=== PATIENT | female | born 1985 | race Caucasian/White ===

== ENCOUNTER 2017-03-04 11:24 | Emergency (ER) | payer OTHER ==
[~2017-03-04] VITALS: Ht 157.5 cm; Wt 56.8 kg
[2017-03-04] MEDS ORDERED: METHOCARBAMOL 500 MG TABLET PO ONE (12:15)
[2017-03-04] MEDS ORDERED: ACETAMINOPHEN 325 MG TABLET PO ONE (12:15)
[2017-03-04] MEDS ORDERED: GuaiFENesin/D-METHORPHAN [SUGAR-FREE] 200-20MG/10 ML SYRUP UDCUP PO ONE (12:15)
[2017-03-04] MEDS ORDERED: KETOROLAC TROMETHAMINE 60 MG/2 ML VIAL IM ONE (12:15)
[2017-03-04 13:07] VITALS: BP 116/74
== END 2017-03-04 13:24 | disposition home or self-care (01) ==
LOC: EMS 11:25
DX: S39.012A Strain of muscle, fascia and tendon of lower back, initial encounter (principal); X58.XXXA Exposure to other specified factors, initial encounter; Y93.89 Activity, other specified; Y92.89 Other specified places as the place of occurrence of the external cause; Y99.8 Other external cause status
CPT/HCPCS: 84703; 96372; 99283; J1885

== ENCOUNTER 2018-02-08 18:08 | Emergency (ER) | payer OTHER ==
[~2018-02-08] VITALS: Ht 157.5 cm; Wt 59.1 kg
[2018-02-08] MEDS ORDERED: METR500 PO (18:11)
[2018-02-08] MEDS ORDERED: IBUP-2071 PO (18:11)
[2018-02-08 19:43] VITALS: BP 122/86
[2018-02-08 20:00] LABS: APPEARANCE,URINE CLEAR (CLEAR); BILIRUBIN,URINE NEGATIVE (NEGATIVE); GLUCOSE, URINE (UA) NEGATIVE (NEGATIVE); KETONES,URINE NEGATIVE (NEGATIVE); LEUKOCYTE ESTERASE ,URINE SMALL (NEGATIVE); NITRATE,URINE NEGATIVE (NEGATIVE); OCCULT BLOOD,URINE NEGATIVE (NEGATIVE); PH,URINE 5.5 (5.0-8.0); PROTEIN,URINE NEGATIVE (NEGATIVE); UROBILINOGEN,URINE 0.2 mg/dL (<=1.0)
[2018-02-08] MEDS ORDERED: TraMADol HCL 50 MG TABLET PO ONE (20:00)
[2018-02-08 20:09] LABS: BACTERIA,URINE Rare /HPF (None Seen); RBC,URINE 0-2 /HPF (0-2); SQUAMOUS EPITHELIAL CELL,UR Few /LPF (None Seen)
== END 2018-02-08 20:30 | disposition home or self-care (01) ==
LOC: EMS 18:09
DX: N76.0 Acute vaginitis (principal); B96.89 Other specified bacterial agents as the cause of diseases classified elsewhere
CPT/HCPCS: 87086; 87210; 99284

== ENCOUNTER 2018-09-30 19:32 | Emergency (ER) | payer OTHER ==
[~2018-09-30] VITALS: Ht 157.5 cm; Wt 59.1 kg
[~2018-09-30 19:32] MED LIST: IBUP-2071 PO; METR500 PO
[2018-09-30 19:40] VITALS: BP 137/68
== END 2018-09-30 22:00 | disposition left against medical advice (07) ==
LOC: EMS 19:34
DX: Z53.21 Procedure and treatment not carried out due to patient leaving prior to being seen by health care provider (principal)

== ENCOUNTER 2018-10-01 12:25 | Emergency (ER) | payer OTHER ==
[~2018-10-01] VITALS: Ht 157.5 cm; Wt 56.8 kg
[2018-10-01] MEDS ORDERED: IBUPROFEN 800 MG TABLET PO ONE (16:30)
[2018-10-01] MEDS ORDERED: BACITRACIN 0.9 GM PACKET OINTMENT TP ONE (16:30)
[2018-10-01] MEDS ORDERED: PERTUSS(ACELL),DIPH,TET VAC/PF 0.5 ML VIAL IM ONE (16:30)
[2018-10-01 17:41] VITALS: BP 108/69
== END 2018-10-01 17:58 | disposition home or self-care (01) ==
LOC: EMS 12:25
DX: S90.31XA Contusion of right foot, initial encounter (principal); S60.221A Contusion of right hand, initial encounter; R23.4 Changes in skin texture; F12.90 Cannabis use, unspecified, uncomplicated; X58.XXXA Exposure to other specified factors, initial encounter; Y93.89 Activity, other specified; Y92.89 Other specified places as the place of occurrence of the external cause; Y99.8 Other external cause status
CPT/HCPCS: 90471; 90715